=== PATIENT | female | born 1955 | race Caucasian/White ===

== ENCOUNTER 2017-05-23 14:17 | Outpatient (CLI) | payer OTHER | END 2017-05-23 18:43 | disposition home or self-care (01) | LOC: SMA 14:17 | DX: Z12.31 Encounter for screening mammogram for malignant neoplasm of breast (principal) | CPT/HCPCS: G0202 ==

== ENCOUNTER 2018-09-01 10:35 | Outpatient (CLI) | payer OTHER | END 2018-09-01 20:01 | disposition home or self-care (01) | LOC: SMA 10:35 | DX: Z12.31 Encounter for screening mammogram for malignant neoplasm of breast (principal) | CPT/HCPCS: 77067 ==